=== PATIENT | male | born 1980 ===

== ENCOUNTER 2024-08-06 09:03 | Outpatient (CLI) | payer OTHER | END 2024-08-06 09:06 | disposition home or self-care (01) | LOC: TOM 09:03 | PROVIDERS: ATTEND General Practice | DX: M25.562 Pain in left knee (principal); N50.89 Other specified disorders of the male genital organs; N50.819 Testicular pain, unspecified; M25.552 Pain in left hip; K40.90 Unilateral inguinal hernia, without obstruction or gangrene, not specified as recurrent; R10.9 Unspecified abdominal pain; R10.2 Pelvic and perineal pain; Z11.3 Encounter for screening for infections with a predominantly sexual mode of transmission; Z12.11 Encounter for screening for malignant neoplasm of colon; Z13.21 Encounter for screening for nutritional disorder; Z13.0 Encounter for screening for diseases of the blood and blood-forming organs and certain disorders involving the immune mechanism; Z13.220 Encounter for screening for lipoid disorders; Z13.1 Encounter for screening for diabetes mellitus; Z13.29 Encounter for screening for other suspected endocrine disorder; Z12.5 Encounter for screening for malignant neoplasm of prostate; Z13.89 Encounter for screening for other disorder; B35.4 Tinea corporis; L30.8 Other specified dermatitis ==